=== PATIENT | female | born 1965 | race Caucasian/White ===

== ENCOUNTER → 2018-01-28 | Outpatient (CLI) | payer OTHER ==
--- NOTE | 2018-01-28 22:59 | XR ---
EXAMINATION TYPE: XR cervical spine comp DATE OF EXAM: 01/28/2018 COMPARISON: NONE HISTORY: 52-year-old female with neck pain, cervicalgia TECHNIQUE: 60 FINDINGS: Mild multilevel uncovertebral joint degenerative changes present. On the left, this minimally narrows the C6-C7 and C7-T1 neuroforamen. On the right, this causes marked moderate neural foraminal narrowi ng at C5-C6 and minimal at C6-C7 and C7-T1. Mild to moderate discussion plain degenerative change and C5-C6 and C6-C7. Reversal of the normal cer vical lordosis with preserved alignment. Normal odontoid view. 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 Uncovertebral joint arthropathy caus es moderate right C5-C6 neural foraminal stenosis.
== END | disposition home or self-care (01) ==
LOC: RADXRYALE 16:44
PROVIDERS: ATTEND Family Medicine
DX: M99.71 Connective tissue and disc stenosis of intervertebral foramina of cervical region (principal); M47.812 Spondylosis without myelopathy or radiculopathy, cervical region; M46.92 Unspecified inflammatory spondylopathy, cervical region
CPT/HCPCS: 72050

== ENCOUNTER → 2018-02-01 | Outpatient (CLI) | payer OTHER ==
--- NOTE | 2018-02-02 09:31 | MR ---
EXAMINATION TYPE: MR cervical spine wo con DATE OF EXAM: 02/01/2018 COMPARISON: None HISTORY: Neck, shoulder, and head pain, stiffness, Decreased ROM, Tingling/Weakness in hands TECHNIQUE: Multiplanar, multisequence images of the cervical spine were acquired. C2-C3: No evidence for degenerative disc disease. No disc bulge/herniation or protrusion. No Canal stenosis. Foramina are patent bilaterally. C3-C4: No evidence for degenerative disc disease. No disc bulge/herniation or protrusion. No Canal stenosis. Foramina are patent bilaterally. C4-C5: Disc bulge has mild anterior thecal sac flattening. No cord contact is evident. No spinal gill l stenosis present. Moderate right foraminal narrowing from uncovertebral joint hypertrophy is presen t. Subligamentous disc extension is likely present sagittal plane images. C5-C6: Mild disc bulging is anterior thecal sac contact. No spinal canal stenosis present. Uncoverteb ral joint hypertrophy is severe right and moderate left foraminal narrowing. Subligamentous disc exte nsion posterior to the C5 levels likely present in the sagittal plane images. C6-C7: Mild disc bulge has anterior thecal sac contact. No AP spinal canal stenosis present. Uncovert ebral joint hypertrophy has moderate bilateral foraminal narrowing. Subligamentous disc extension sag ittal plane appears to be present. C7-T1: No evidence for degenerative disc disease. No disc bulge/herniation or protrusion. No Canal stenosis. Foramina are patent bilaterally. Cervical segments are intact. There is normal alignment. Cervical spinal cord is of normal signal. Craniovertebral junction relationships are within normal limits. IMPRESSION: 1. Subligamentous disc herniation with disc bulging causing mild anterior thecal sac compression C4-5 C5-6 C6-7. 2. Uncovertebral joint hypertrophy contributing to foraminal stenosis discussed above. This appears g reatest at the C5-6 level on the right.
== END | disposition home or self-care (01) ==
LOC: RADMRIMAIN 14:11
PROVIDERS: ATTEND Family Medicine
DX: M99.71 Connective tissue and disc stenosis of intervertebral foramina of cervical region (principal); M50.221 Other cervical disc displacement at C4-C5 level; G95.29 Other cord compression
CPT/HCPCS: 72141